=== PATIENT | male | born 1950 | race Caucasian/White ===

== ENCOUNTER 2022-09-28 08:06 | Observation (INO) ==
[~2022-09-28 08:06] MED LIST: Buffered Lidocaine 1% SYRIN 1 ml INTRADERM ONE; Lactated Ringers 1000 ml BAG 1,000 ML IV SCH
[2022-09-28] MEDS ORDERED: Chlorhexidine MOUTHWASH 0.12% 15 ML UDC ONE (08:27)
[2022-09-28] MEDS ORDERED: ceFAZolin 2 GM in NS PREMIX 2 GM/100 ML BAG IVPB ONE (08:57)
[2022-09-28 09:02] LABS: Rapid COVID-19 Molecular Undetected (Undetected)
[2022-09-28] MEDS ORDERED: Propofol 10 MG/ML 20 ML BTL ONE (11:00)
[2022-09-28] MEDS ORDERED: Dexamethasone IV 4 MG/ML VIAL 1 ml VIAL ONE (11:00)
[2022-09-28] MEDS ORDERED: Ondansetron 4 mg VIAL 2 MG/ML 2 ml VIAL ONE (11:00)
[2022-09-28] MEDS ORDERED: Lidocaine 2% PF 5 ML VIAL ONE (11:00)
[2022-09-28] MEDS ORDERED: fentaNYL 100 mcg/2 ml 50 MCG/ML VIAL ONE ×3 (11:01→17:00)
[2022-09-28] MEDS ORDERED: Rocuronium 50 mg VIAL 10 mg/ml 5 ml VIAL (50 mg) ONE (11:01)
[2022-09-28] MEDS ORDERED: Lidocaine 1% w EPI 1:100,000 MDV 20 ML VIAL ONE (11:53)
[2022-09-28] MEDS ORDERED: Thrombin 5,000 UNITS 1 APPLIC KIT - topical use - TOPICAL ONE (11:53)
[2022-09-28] MEDS ORDERED: Gelfoam Sponge SIZE 100 SPONGE ONE (11:54)
[2022-09-28] MEDS ORDERED: ceFAZolin VIAL VIAL ONE (11:54)
[2022-09-28] MEDS ORDERED: Famotidine IV 10 MG/ML 2 ml VIAL (20 mg) IV ONE (12:06)
[2022-09-28] MEDS ORDERED: Famotidine IV 10 MG/ML 2 ml VIAL (20 mg) ONE (12:09)
[2022-09-28] MEDS ORDERED: Acetaminophen IV 1 GM/100ML 1,000 MG/100 ML BAG IV ONE (12:15)
[2022-09-28] MEDS ORDERED: Phenylephrine 40 mcg/mL 10mL (400mcg) SYRINGE ONE (12:43)
[2022-09-28] MEDS ORDERED: Naloxone 0.4 mg VIAL 0.4 mg/ml 1 ml VIAL IV PRN (13:13)
[2022-09-28] MEDS ORDERED: Morphine 2 MG/ML SYRINGE IV PRN (15:18)
[2022-09-28] MEDS ORDERED: Ondansetron 4 mg VIAL 2 MG/ML 2 ml VIAL IV PRN (15:18)
[2022-09-28] MEDS: fentaNYL 100 mcg/2 ml 50 MCG/ML VIAL IV PRN ×5 (15:44→17:01)
[2022-09-28] MEDS ORDERED: Lactated Ringers 1000 ml BAG 1,000 ML IV SCH (16:00)
[2022-09-29] MEDS: Cholecalciferol (VIT D3) 1,000 unit TAB PO SCH (08:39)
[2022-09-30] MEDS: Cholecalciferol (VIT D3) 1,000 unit TAB PO SCH (08:16)
[2022-09-30 10:02] VITALS: BP 130/65
== END 2022-09-30 12:52 | disposition home or self-care (01) ==
LOC: OR 08:06 → SSU 08:06
PROVIDERS: ADMIT Neurological Surgery; ATTEND Neurological Surgery